=== PATIENT | female | born 1990 | race Asian ===

== ENCOUNTER 2022-08-30 20:04 | Emergency (ER) | payer OTHER ==
[~2022-08-30] VITALS: Ht 152.4 cm; Wt 49.0 kg
[2022-08-30] MEDS ORDERED: EPINEPHrine 1:1,000 [1 MG/ML] VIAL IM ONE (20:30)
[2022-08-30] MEDS ORDERED: FAMOTIDINE 20 MG TABLET PO ONE (20:30)
[2022-08-30] MEDS ORDERED: DiphenhydrAMINE HCL 25 MG CAPSULE PO ONE (20:30)
[2022-08-30] MEDS ORDERED: PredniSONE 20 MG TABLET PO ONE (20:30)
[2022-08-30] MEDS ORDERED: EPIN0.3P3 IM (21:04)
[2022-08-30 22:19] VITALS: BP 128/74
[2022-08-30] MEDS ORDERED: PRED-554 PO (22:29)
== END 2022-08-30 23:12 | disposition home or self-care (01) ==
LOC: EMS 20:35
DX: T78.2XXA Anaphylactic shock, unspecified, initial encounter (principal); T78.40XA Allergy, unspecified, initial encounter
CPT/HCPCS: 99284; 96372; J0171; J7512